=== PATIENT | female | born 1985 | race Caucasian/White ===

== ENCOUNTER → 2017-01-01 | Outpatient (CLI) | payer BC ==
--- NOTE | 2017-01-01 08:46 | US ---
EXAMINATION TYPE: US transvaginal DATE OF EXAM: 01/01/2017 COMPARISON: NONE CLINICAL HISTORY: N92.0 Menorrhagia. TECHNIQUE: Transvaginal (TV) Date of LMP: 12/14/2016 EXAM MEASUREMENTS: Uterus: 7.1 x 4.3 x 4.7 cm Endometrial Stripe: 0.6 cm Right Ovary: 3.3 x 2.3 x 2.2 cm Left Ovary: 3.3 x 2.1 x 1.6 cm 1. Uterus: Retroverted wnl 2. Endometrium: wnl 3. Right Ovary: Follicles visualized, peripherally oriented 4. Left Ovary: Follicles visualized, peripherally oriented 5. Bilateral Adnexa: Prominent vessels visualized bilaterally 6. Posterior cul-de-sac: wnl IMPRESSION: 1. Endometrium is within normal limits in this patient with a history of menorrhagia. 2. Multiple bilateral peripherally oriented follicles, which can be seen in polycystic ovarian syndro me. Correlate with serum laboratory values and clinical history. 3. Prominent adnexal and uterine vasculature which may relate to pelvic congestion syndrome.
== END | disposition home or self-care (01) ==
LOC: RADUSMAIN 08:00
PROVIDERS: ATTEND Obstetrics & Gynecology
DX: N85.8 Other specified noninflammatory disorders of uterus (principal); N92.0 Excessive and frequent menstruation with regular cycle
CPT/HCPCS: 76830

== ENCOUNTER → 2017-02-13 | Outpatient (CLI) | payer BC ==
[2017-02-13 13:57] LABS: Basophils # (A) 0.1 k/uL (0-0.2); Basophils % (A) 1 %; CH 32.5; Eosinophils # (A) 0.1 k/uL (0-0.7); Eosinophils % (A) 1 %; HCT 44.7 % (34.0-46.0); HDW 2.03; Luc # (Auto) 0.11; Luc % (Auto) 1; Lymphocytes # (A) 2.1 k/uL (1.0-4.8); Lymphocytes % (A) 25 %; MCHC 31.3 g/dL (31.0-37.0); MCV 99.1 fL (80.0-100.0); Mean Platelet Volume 8.2; Monocytes # (A) 0.6 k/uL (0-1.0); Monocytes % (A) 7 %; Neutrophils # (A) 5.5 k/uL (1.3-7.7); Neutrophils % (A) 66 %; RBC 4.51 m/uL (3.80-5.40); RDW 13.9 % (11.5-15.5); WBC 8.4 k/uL (3.8-10.6); WBC (Perox) 8.23
== END | disposition home or self-care (01) ==
LOC: LABPAT 12:52
PROVIDERS: ATTEND Obstetrics & Gynecology
DX: Z01.812 Encounter for preprocedural laboratory examination (principal)
CPT/HCPCS: 36415; 85025

== ENCOUNTER 2017-02-20 05:51 | Day surgery (SDC) | payer BC ==
[2017-02-17 11:53] VITALS: BMI 20.5
--- NOTE | 2017-02-19 07:54 | P.HPOB ---
History of Present Illness H&P Date: 02/19/17 Chief Complaint: Menorrhagia and family planning. This patient is a pleasant 31 yr female who is presenting for endometrial ablation for menorrhagia and also requesting permanent sterilization. Evaluation has included a pelvic ultrasound which was normal. Menses have been long and heavy. Does not want hormonal methods. Review of Systems Constitutional: Denies chills, Denies fever Cardiovascular: Denies chest pain, Denies shortness of breath Respiratory: Denies cough Gastrointestinal: Denies abdominal pain, Denies diarrhea, Denies nausea, Denies vomiting Genitourinary: Reports as per HPI Menstruation: Reports period heavy Past Medical History Past Medical History: No Reported History History of Any Multi-Drug Resistant Organisms: None Reported Past Surgical History: No Surgical Hx Reported Additional Past Surgical History / Comment(s): wisdom teeth removed Past Anesthesia/Blood Transfusion Reactions: No Reported Reaction Past Psychological History: Depression Smoking Status: Current every day smoker Past Alcohol Use History: None Reported Past Drug Use History: None Reported - Past Family History Father History Unknown: Yes Family Medical History: Cancer, Hypertension Medications and Allergies Home Medications Medication Instructions Recorded Confirmed Type ALPRAZolam [Xanax] 0.5 mg PO DAILY PRN 02/17/17 02/17/17 History Citalopram Hydrobromide [CeleXA] 10 mg PO HS 02/17/17 02/17/17 History Allergies Allergy/AdvReac Type Severity Reaction Status Date / Time No Known Allergies Allergy Verified 02/17/17 11:47 Exam - OBG Physical Exam Abdomen: bowel sounds normal, no diffuse tenderness, no bruit present, no guarding noted, no hepatomegaly, no splenomegaly, no mass Vulva: both: normal Vagina: normal moisture, no discharge Cervix: no lesion, no discharge Uterus: normal size Adnexa: both: normal Results Pelvic ultrasound on January 01 was normal. Assessment and Plan (1) Menorrhagia Narrative/Plan: This is a pleasant 31 yr old female with menorrhagia requesting endometrial ablation and also requesting permanent sterilization. Plan is hysteroscopy, D&C, Novasure endometrial ablation and laparoscopy bilateral fallopian tube cauterization. Patient understands that this procedure is permanent, however there is a 20- procedures chance of failure and 50% chance of ectopic or tubal if this were to happen. She understands the risks: infection, bleeding, possible injury to bowel bladder/vessels/ and/ or other organs. She also understands that this procedure is elective and alternatives to it exist. I discussed the ablation and risks: infection, bleeding, possible uterine perforation and thermal injury. All of the patients questions were answered and a written consent obtained. Status: Chronic (2) Family planning Status: Acute
[~2017-02-20 05:51] MED LIST: Pre Op ABX Message 1 EACH MISC MISCELLANE ONE
[2017-02-20] MEDS ORDERED: DEXAMETHASONE SOD PHOSPHATE 10 MG/ML 1 ML VIAL IV ONE (05:59)
[2017-02-20] MEDS ORDERED: ONDANSETRON 4 MG/2 ML VIAL IVP ONE (05:59)
[2017-02-20] MEDS: LACTATED RINGERS 1,000 ML IV SCH ×2 (06:17→08:35)
[2017-02-20] MEDS ORDERED: LIDOCAINE 1% 20 ML VIAL (10MG/ML) FOR IV START INTRADERMA ONE (06:22)
[2017-02-20] MEDS ORDERED: SUCCINYLCHOLINE CHLORIDE 100 MG/5 ML SYR IV ONE (07:20)
[2017-02-20] MEDS ORDERED: ROCURONIUM BROMIDE 10 MG/ML 10 ML VIAL IV ONE (07:20)
[2017-02-20] MEDS ORDERED: PROPOFOL 10 MG/ML 20 ML VIAL IV ONE (07:20)
[2017-02-20] MEDS ORDERED: NEOSTIGMINE 1 MG/ML 10 ML VIAL ONE (07:20)
[2017-02-20] MEDS ORDERED: MIDAZOLAM 2 MG/2 ML VIAL ONE (07:20)
[2017-02-20] MEDS ORDERED: fentaNYL (PF) 50 MCG/ML 2 ML AMP ONE (07:20)
[2017-02-20] MEDS ORDERED: KETOROLAC 30 MG/ML 1 ML VIAL ONE (07:20)
[2017-02-20] MEDS ORDERED: LIDOCAINE 1% INJ 10MG/ML (20 ML MDV) ONE (07:20)
[2017-02-20] MEDS ORDERED: GLYCOPYRROLATE 0.2 MG/ML 2 ML VIAL ONE (07:20)
[2017-02-20] MEDS ORDERED: BUPIVACAINE (PF) 0.5% 30 ML VIAL SQ ONE ×2 (07:50)
--- NOTE | 2017-02-20 08:24 | P.OP ---
Date of Procedure: 02/20/17 Preoperative Diagnosis: Menorrhagia and family planning Postoperative Diagnosis: Same Procedure(s) Performed: #1: Laparoscopic bilateral fallopian tube cauterization. #2: Hysteroscopy. #3 : Dilation and curettage. #4: NovaSure endometrial ablation Anesthesia: WALLACE Surgeon: Markie Ogden Estimated Blood Loss (ml): 20 Urine output (ml): 15 Pathology: other (Uterine curettings) Condition: stable Disposition: PACU Indications for Procedure: Please see dictated H&P for intimate details of this patient's admission. Brief summary is a pleasant 31-year-old multiparous patient who is requesting permanent sterilization and NovaSure endometrial ablation for menorrhagia. Patient her stands a tubal ligation is considered permanent, however there is a failure rate of approximately 20-25 per thousand procedures done. She understands if she does become she has a 50% chance of a tubal or ectopic . Patient also understands laparoscopic surgery and apparently has risks including risks of infection, bleeding, possible injury to bowel, bladder, vessels, and other organs. Patient understands that a D&C and NovaSure has risk of infection and bleeding as well, also including but not limited to uterine perforation and thermal injury. All the patient's questions are answered and a written consent is obtained. Operative Findings: This patient had a normal-appearing pelvis and normal-appearing appendix. Uterine cavity appeared normal as well Description of Procedure: This patient is taken to the operating room where she is laid in the supine position. She subsequently undergoes general endotracheal anesthesia without incident. With an adequate level of anesthesia she's placed in dorsal lithotomy position. His vaginal perineal abdominal prep and drape. First, down below placed a weighted speculum posterior vagina. The anterior lip of the cervix is grabbed with an Allis clamp and a large acorn cannula is gently placed into the endocervix and attached to the Allis clamp. A red Archibald catheter is then placed in the bladder and is drained for 15 mL of clear urine. The catheter was left in place. Then changed gloves and go up above. I make a 1 cm infraumbilical incision. Through this a 10 mm bladeless optical trochar is placed directly into the peritoneal cavity. Pneumoperitoneum was then created to 15 mm of carbon dioxide gas. I then approximately 2 finger breaths above the symphysis pubis make a 5 mm incision and a 5 mm bladeless trochar is placed under direct visualization. Using a blunt probe I then visualized the uterus ovaries and upper abdomen all appears normal. Using bipolar cautery I grasped the left fallopian tube approximately 4 cm from its cornual insertion and cauterize a 2-3 cm segment of the tube. Complete cauterization is demarcated by the volt meter. Similar technique on the right side is done with similar results. With this done the lower trochars removed and good hemostasis is noted. Pneumoperitoneum was reduced and the upper trochars removed. Incisions are then closed using a 4-0 Vicryl interrupted fashion. I do cauterize 2 small areas in the umbilical incision for good hemostasis. Steri- Strips and sterile dressing is applied. I did infiltrate with half percent Marcaine both incisions for postoperative pain control. We will back down below placed a weighted speculum back into the vagina. The catheter is removed. The uterus is then sounded to approximately 7-1/2 cm. Gentle dilation is then done to allow the hysteroscope into the uterine cavity. Hysteroscopy is performed with saline solution and the uterine cavity appears normal. The hysteroscope was then removed. The cervix is dilated more to allow a small sharp curette easily and the uterine cavity. A gentle but thorough 4 quadrant curettage is then done. With this done the NovaSure device is then opened and appears to be intact. It is set at a length of 5.5 cm and seated in place and opens up to a width of 3.7 cm. It is then after being enabled, engaged to 112 W setting for 66 seconds. NovaSure device is then removed and appears to be intact. Hysteroscopy again is performed and the uterine cavity appears to be completely ablated. With this done the procedure is terminated. The Allis clamp and weighted speculum was removed. All counts are correct 3. There are no complications. Patient is awakened from anesthesia and taken recovery room in satisfactory condition.
[2017-02-20 08:29] VITALS: TEMP 97.3
[2017-02-20] MEDS: HYDROmorphone 0.5 MG/0.5 ML SYRINGE IVP PRN ×2 (08:30→08:40)
[2017-02-20 09:12] VITALS: RESP 18
[2017-02-20 09:26] VITALS: BP 119/83; PULSE 61
== END 2017-02-20 09:54 | disposition home or self-care (01) ==
LOC: OR 05:51
PROVIDERS: ATTEND Obstetrics & Gynecology
DX: N92.0 Excessive and frequent menstruation with regular cycle (principal); Z30.2 Encounter for sterilization; F32.9 Major depressive disorder, single episode, unspecified; F17.200 Nicotine dependence, unspecified, uncomplicated; Z79.899 Other long term (current) drug therapy; Z80.9 Family history of malignant neoplasm, unspecified; Z82.49 Family history of ischemic heart disease and other diseases of the circulatory system
CPT/HCPCS: 58563; 58670; 81025; 88305; J2250; J1100; J2710; J2405; J2001; J3010; J1885; J0330; J2704; J1170